=== PATIENT | male | born 1960 | race Caucasian/White ===

== ENCOUNTER 2019-10-22 11:52 | Emergency (ER) | payer OTHER ==
[2019-10-22 13:26] LABS: HEMATOCRIT 41.9 % (39.0-50.0); HEMOGLOBIN 13.7 g/dl (14.0-18.0); IMMATURE GRANULOCYTES 0.6 % (0.0-5.0); MEAN CELL VOLUME 94.4 fL CALC (80.0-100.0); MEAN CORPUSCULAR HGB 30.9 pG CALC (26.0-32.0); MEAN CORPUSCULAR HGB CONC 32.7 g/dL CAL (32.0-36.0); NEUT# 3.43 thou/uL (1.82-7.42); RED BLOOD COUNT 4.44 mill/uL (4.70-6.10); RED CELL DISTRI WIDTH 12.9 % (11.5-15.5)
[2019-10-22 13:34] LABS: ALBUMIN 4.7 g/dL (3.2-5.0); ALKALINE PHOSPHATASE 98 u/l (38-126); ANION GAP 13 (6-22 (CALC)); BILIRUBIN, TOTAL 0.5 mg/dL (0.0-1.4); BUN 15 mg/dL (8-23); BUN/CREATININE RATIO 22 (12-20 (CALC)); CARBON DIOXIDE 30 mmol/l (22-30); CHLORIDE 100 mmol/l (95-108); CREATININE 0.7 mg/dL (0.7-1.3); GFR > 60 ML/MIN (>=60 (CALC)); GFR FOR AFR.AMER. > 60 ML/MIN (>=60 (CALC)); POTASSIUM 3.9 mmol/l (3.5-5.1); SGOT/AST 53 u/l (19-48); SODIUM 138 mmol/l (137-146)
[2019-10-22 13:43] LABS: MYOGLOBIN 44 ng/mL (0 - 121)
[2019-10-22] MEDS ORDERED: BACITRACIN AU (13:43)
[2019-10-22] MEDS ORDERED: NEOMYCIN AU (13:43)
[2019-10-22] MEDS ORDERED: POLYMYXIN B AU (13:43)
[2019-10-22] MEDS ORDERED: LISINOP/HCTZ1 TA1 PO (13:49)
[2019-10-22] MEDS ORDERED: LISINOPRIL20 MG PO (13:49)
[2019-10-22] MEDS ORDERED: METOPROL TAR25 MG PO (13:50)
[2019-10-22] MEDS ORDERED: FUROSEMIDE20 MG PO (13:50)
[2019-10-22] MEDS ORDERED: SIMVASTATIN5 MG PO (13:50)
[2019-10-22] MEDS ORDERED: CLARITIN10 M1 PO (13:54)
[2019-10-22] MEDS ORDERED: AMOXICILLIN875 MG PO (13:54)
[2019-10-22] MEDS ORDERED: FLONASE AL50 MCG/ACT (13:54)
[2019-10-22 14:25] VITALS: BP 164/88
== END 2019-10-22 14:25 | disposition home or self-care (01) | DRG 153 ==
LOC: ED 11:52
PROVIDERS: Emergency Medicine
DX: H65.92 Unspecified nonsuppurative otitis media, left ear (principal); E11.9 Type 2 diabetes mellitus without complications; I10 Essential (primary) hypertension

== ENCOUNTER 2021-12-31 18:08 | Emergency (ER) | payer OTHER, MEDICARE ==
[2021-12-31] VITALS (9 sets, daily range): BP systolic 132–166; BP diastolic 80–102
[~2021-12-31] VITALS: Ht 177.8 cm; Wt 154.5 kg
[~2021-12-31 18:08] MED LIST: AMOXICILLIN875 MG PO; BACITRACIN AU; CLARITIN10 M1 PO; FLONASE AL50 MCG/ACT; FUROSEMIDE20 MG PO; LISINOP/HCTZ1 TA1 PO; LISINOPRIL20 MG PO; METOPROL TAR25 MG PO; NEOMYCIN AU; POLYMYXIN B AU; SIMVASTATIN5 MG PO
[2021-12-31 18:32] LABS: HEMOGLOBIN 13.7 g/dl (14.0-18.0); IMMATURE GRANULOCYTES 0.1 % (0.0-5.0); MEAN CELL VOLUME 92.6 fL CALC (80.0-100.0); MEAN CORPUSCULAR HGB 30.9 pG CALC (26.0-32.0); MEAN CORPUSCULAR HGB CONC 33.4 g/dL CAL (32.0-36.0); NEUT# 6.34 thou/uL (1.82-7.42); RED BLOOD COUNT 4.43 mill/uL (4.70-6.10); RED CELL DISTRI WIDTH 13.4 % (11.5-15.5)
[2021-12-31 18:44] LABS: ALBUMIN 4.3 g/dL (3.2-5.0); ALKALINE PHOSPHATASE 70 u/l (38-126); ANION GAP 15 (6-22 (CALC)); BILIRUBIN, TOTAL 0.4 mg/dL (0.0-1.4); BUN 15 mg/dL (8-23); BUN/CREATININE RATIO 12 (12-20 (CALC)); CARBON DIOXIDE 26 mmol/l (22-30); CHLORIDE 105 mmol/l (95-108); CREATININE 1.3 mg/dL (0.7-1.3); GFR FOR AFR.AMER. > 60 ML/MIN (>=60 (CALC)); GFR OTHER RACES 56 ML/MIN (>=60 (CALC)); SGOT/AST 56 u/l (19-48); SODIUM 142 mmol/l (137-146); TOTAL PROTEIN 7.9 g/dL (6.3-8.2)
== END 2021-12-31 20:42 | disposition home or self-care (01) | DRG 311 ==
LOC: ED 18:08
PROVIDERS: Family Medicine
DX: I20.0 Unstable angina (principal); I10 Essential (primary) hypertension; E11.9 Type 2 diabetes mellitus without complications; E78.5 Hyperlipidemia, unspecified
CPT/HCPCS: J1644

== ENCOUNTER 2022-01-14 16:22 | Emergency (ER) | payer OTHER, MEDICARE ==
[~2022-01-14] VITALS: Ht 177.8 cm; Wt 157.0 kg
[2022-01-14] VITALS (11 sets, daily range): BP systolic 85–165; BP diastolic 61–114
[2022-01-14] MEDS ORDERED: ASPIRIN81 MG PO (16:41)
[2022-01-14] MEDS ORDERED: METFORMIN500 M2 PO (16:42)
[2022-01-14] MEDS ORDERED: POTASSI19 XX (16:42)
[2022-01-14 17:22] LABS: HEMATOCRIT 36.2 % (39.0-50.0); IMMATURE GRANULOCYTES 0.9 % (0.0-5.0); MEAN CELL VOLUME 93.8 fL CALC (80.0-100.0); MEAN CORPUSCULAR HGB 30.3 pG CALC (26.0-32.0); MEAN CORPUSCULAR HGB CONC 32.3 g/dL CAL (32.0-36.0); NEUT# 4.84 thou/uL (1.82-7.42); RED BLOOD COUNT 3.86 mill/uL (4.70-6.10); RED CELL DISTRI WIDTH 13.6 % (11.5-15.5)
[2022-01-14 17:26] LABS: HEMOGLOBIN 11.7 g/dl (14.0-18.0)
[2022-01-14 17:34] LABS: ALBUMIN 4.4 g/dL (3.2-5.0); ALKALINE PHOSPHATASE 98 u/l (38-126); ANION GAP 16 (6-22 (CALC)); BILIRUBIN, TOTAL 0.3 mg/dL (0.0-1.4); BUN 12 mg/dL (8-23); BUN/CREATININE RATIO 10 (12-20 (CALC)); CARBON DIOXIDE 28 mmol/l (22-30); CHLORIDE 103 mmol/l (95-108); CREATININE 1.2 mg/dL (0.7-1.3); GFR FOR AFR.AMER. > 60 ML/MIN (>=60 (CALC)); GFR OTHER RACES > 60 ML/MIN (>=60 (CALC)); POTASSIUM 4.8 mmol/l (3.5-5.1); SGOT/AST 35 u/l (19-48); SODIUM 141 mmol/l (137-146); TOTAL PROTEIN 8.2 g/dL (6.3-8.2)
== END 2022-01-14 19:50 | disposition home or self-care (01) | DRG 863 ==
LOC: ED 16:22
PROVIDERS: Nurse Practitioner
DX: T81.49XA Infection following a procedure, other surgical site, initial encounter (principal); Y83.9 Surgical procedure, unspecified as the cause of abnormal reaction of the patient, or of later complication, without mention of misadventure at the time of the procedure; E11.9 Type 2 diabetes mellitus without complications; I10 Essential (primary) hypertension; Z79.84 Long term (current) use of oral hypoglycemic drugs; E78.5 Hyperlipidemia, unspecified
CPT/HCPCS: Q9967

== ENCOUNTER 2024-02-17 09:53 | Emergency (ER) | payer OTHER, MEDICARE ==
[~2024-02-17] VITALS: Ht 177.8 cm; Wt 158.0 kg
[2024-02-17] VITALS (12 sets, daily range): BP systolic 109–146; BP diastolic 50–77
[~2024-02-17 09:53] MED LIST changes: +ASPIRIN81 MG PO; +METFORMIN500 M2 PO; +POTASSI19 XX
[2024-02-17] MEDS ORDERED: IBUPROFEN 800 MG/TAB PO ONE (10:55)
[2024-02-17] MEDS ORDERED: NABUMETONE750 MG PO (12:48)
== END 2024-02-17 13:03 | disposition home or self-care (01) | DRG 605 ==
LOC: ED 09:53
DX: S50.01XA Contusion of right elbow, initial encounter (principal); I10 Essential (primary) hypertension; E11.9 Type 2 diabetes mellitus without complications; E78.5 Hyperlipidemia, unspecified; W19.XXXA Unspecified fall, initial encounter; Z79.84 Long term (current) use of oral hypoglycemic drugs

== ENCOUNTER 2024-04-03 10:05 | Emergency (ER) | payer OTHER, MEDICARE ==
[~2024-04-03] VITALS: Ht 177.8 cm; Wt 159.0 kg
[~2024-04-03 10:05] MED LIST changes: +NABUMETONE750 MG PO
[2024-04-03 10:35] VITALS: BP 133/70
[2024-04-03 11:16] VITALS: BP 128/60
[2024-04-03] MEDS ORDERED: HYDROmorphone HCL 2 MG/AMP IM ONE (12:00)
[2024-04-03] MEDS ORDERED: ONDANSETRON 4 MG/TAB ODT PO ONE (12:00)
[2024-04-03 12:14] LABS: BASO% 0.5 % (0-3); EOS% 1.6 % (0-8); HEMOGLOBIN 13.6 g/dl (14.0-18.0); IMMATURE GRANULOCYTES 0.3 % (0.0-5.0); LYMPH% 22.9 % (15-41); MEAN CELL VOLUME 94.2 fL CALC (80.0-100.0); MEAN CORPUSCULAR HGB 30.4 pG CALC (26.0-32.0); MEAN CORPUSCULAR HGB CONC 32.2 g/dL CAL (32.0-36.0); MONO% 8.4 % (2-13); NEUT# 5.04 thou/uL (1.82-7.42); NEUT% 66.3 % (42-76); RED BLOOD COUNT 4.48 mill/uL (4.70-6.10); RED CELL DISTRI WIDTH 14.2 % (11.5-15.5)
[2024-04-03 12:17] LABS: HEMATOCRIT 42.2 % (39.0-50.0)
[2024-04-03 12:29] LABS: ALBUMIN 4.4 g/dL (3.2-5.0); TOTAL PROTEIN 7.4 g/dL (6.3-8.2)
[2024-04-03 12:33] LABS: BILIRUBIN, TOTAL 0.5 mg/dL (0.2-1.3); POTASSIUM 3.7 mmol/l (3.5-5.1)
[2024-04-03] MEDS ORDERED: TRAMADOL HYDROC50 M1 PO (13:43)
[2024-04-03] MEDS ORDERED: FLEXERIL5 M1 PO (13:43)
[2024-04-03] MEDS ORDERED: PREDNISONE50 MG PO (13:43)
[2024-04-03 13:53] VITALS: BP 133/70
== END 2024-04-03 13:53 | disposition home or self-care (01) | DRG 552 ==
LOC: ED 10:05
PROVIDERS: Family Medicine
DX: M54.31 Sciatica, right side (principal); I10 Essential (primary) hypertension; E11.9 Type 2 diabetes mellitus without complications; E78.5 Hyperlipidemia, unspecified; Z96.652 Presence of left artificial knee joint; Z79.82 Long term (current) use of aspirin; Z79.84 Long term (current) use of oral hypoglycemic drugs
CPT/HCPCS: J1171